=== PATIENT | male | born 1935 | race Native Hawaiian/Other Pacific Islander ===

== ENCOUNTER 2024-02-14 04:10 | Inpatient (IN) | payer OTHER ==
[2024-02-14] MEDS ORDERED: PANTOPRAZOLE SODIUM 40 MG VIAL ONE ×2 (04:48→04:53)
[2024-02-14] MEDS ORDERED: ONDANSETRON 4 MG/2 ML VIAL ONE (04:48)
[2024-02-14] MEDS: ONDANSETRON 4 MG/2 ML VIAL IVPUSH ONE (04:51)
[2024-02-14] MEDS: PANTOPRAZOLE SODIUM 40 MG VIAL IVPUSH ONE ×2 (04:51→04:56)
[2024-02-14 05:25] LABS: BASO % 0.7 % (0-2.0); EOS % 0.1 % (0-4.5); HEMATOCRIT 30.2 % (35.4-49); LYMPH % 8.9 % (8-40); MCH 31.9 pg (25.7-33.7); MCHC 33.3 g/dl (32.0-35.9); MEAN CELL VOLUME 95.7 fl (80-96); MEAN PLT VOLUME 8.4 fl (7.5-11.1); MONO % 1.8 % (3.8-10.2); NEUT % 88.5 % (42.8-82.8); PLATELET COUNT 221 10^3/uL (134-434); RBC 3.15 M/mm3 (4.00-5.60); RDW 14.1 % (11.9-15.9); WHITE BLOOD COUNT 7.9 K/mm3 (4.0-10.0)
[2024-02-14 05:32] LABS: VENOUS BASE EXCESS 0.9 mmol/L (-2-2); VENOUS O2 SATURATION 67.9 % (70-80); VENOUS PCO2 41.6 mmHg (38-52); VENOUS PH 7.408 (7.310-7.410)
[2024-02-14 05:47] LABS: CALCIUM 9.7 mg/dL (8.5-10.1)
[2024-02-14 05:48] LABS: ALBUMIN 3.3 g/dl (3.4-5.0); BLOOD UREA NITROGEN 29.9 mg/dL (7-18)
[2024-02-14 05:51] LABS: CREATININE 1.4 mg/dL (0.55-1.3)
[2024-02-14 05:53] LABS: BILIRUBIN,TOTAL 0.5 mg/dL (0.2-1); TOT PROT 7.4 g/dl (6.4-8.2)
[2024-02-14 06:00] LABS: INR 1.24 (0.83-1.09); PROTHROMBIN TIME (PATIENT) 14.2 SEC (9.7-13.0)
[2024-02-14 06:03] LABS: ACTIVATED PTT 32.5 SECONDS (25.2-36.5)
[2024-02-14] MEDS: LACTATED RINGERS SOLUTION 1000 ML INFUS.BAG IV ONE (06:41)
[2024-02-14] MEDS ORDERED: ONDANSETRON 4 MG/2 ML VIAL IVPUSH PRN (11:11)
[2024-02-14] MEDS ORDERED: ASPIRIN 81 MG CHEWABLE TABLETS ONE (12:43)
[2024-02-14] MEDS ORDERED: FAMOTIDINE 20 MG TABLET ONE (12:43)
[2024-02-14] MEDS ORDERED: APIXABAN 2.5 MG TABLET ONE ×2 (12:43→22:08)
[2024-02-14] MEDS: APIXABAN 2.5 MG TABLET PO SCH (12:46)
[2024-02-14] MEDS: FAMOTIDINE 20 MG TABLET PO SCH (12:46)
[2024-02-14] MEDS: ASPIRIN 81 MG CHEWABLE TABLETS PO SCH (12:46)
[2024-02-14] MEDS: MEMANTINE HCL 10 MG TABLET (FP) PO SCH (12:46)
[2024-02-14] MEDS ORDERED: PATIENT'S OWN MEDICATION (NON-FORMULARY) (Carbidopa/Levodopa [Carbidopa-Levodopa 10-100 Ta PO SCH (14:00)
[2024-02-14] MEDS: INSULIN ASPART SLIDING SCALE (NOVOLOG) 1 VIAL SQ SCH (17:05)
[2024-02-14] MEDS ORDERED: QUEtiapine FUMARATE 25 MG TABLET ONE (22:08)
[2024-02-14] MEDS ORDERED: ATORVASTATIN CA 20 MG TABLET (FP) ONE (22:08)
[2024-02-14] MEDS ORDERED: TAMSULOSIN HCL 0.4 MG CAP ONE (22:10)
[2024-02-14] MEDS: TAMSULOSIN HCL 0.4 MG CAP PO SCH (22:14)
[2024-02-14] MEDS: ATORVASTATIN CA 20 MG TABLET (FP) PO SCH (22:14)
[2024-02-14] MEDS: QUEtiapine FUMARATE 25 MG TABLET PO SCH (22:14)
[2024-02-15 07:20] LABS: EOS % 1.9 % (0-4.5); HEMATOCRIT 32.4 % (35.4-49); HEMOGLOBIN 10.9 GM/dL (11.7-16.9); MCH 32.3 pg (25.7-33.7); MCHC 33.5 g/dl (32.0-35.9); MEAN CELL VOLUME 96.4 fl (80-96); MEAN PLT VOLUME 8.8 fl (7.5-11.1); MONO % 6.5 % (3.8-10.2); NEUT % 73.6 % (42.8-82.8); PLATELET COUNT 227 10^3/uL (134-434); RBC 3.36 M/mm3 (4.00-5.60); RDW 14.3 % (11.9-15.9); WHITE BLOOD COUNT 9.4 K/mm3 (4.0-10.0)
[2024-02-15 07:38] LABS: POTASSIUM 4.1 mmol/L (3.5-5.1)
[2024-02-15 07:42] LABS: BLOOD UREA NITROGEN 23.6 mg/dL (7-18); CALCIUM 9.7 mg/dL (8.5-10.1)
[2024-02-15 07:45] LABS: CREATININE 1.7 mg/dL (0.55-1.3)
[2024-02-15 07:46] LABS: PHOSPHOROUS 4.1 mg/dL (2.5-4.9)
[2024-02-15] MEDS: SODIUM CHLORIDE 1,000 ML IV STA (08:35)
[2024-02-15] MEDS ORDERED: hydrOXYzine PAMOATE 25 MG CAPSULE (FP) PO ONE (08:47)
[2024-02-15] MEDS: hydrOXYzine PAMOATE 25 MG CAPSULE (FP) PO ONE (09:04)
[2024-02-15] MEDS: CARBIDOPA/LEVODOPA 10/100 TABLET (FP) PO SCH (09:04)
[2024-02-15] MEDS ORDERED: PANTOPRAZOLE SODIUM 40 MG VIAL ONE (10:13)
[2024-02-15] MEDS: PANTOPRAZOLE SODIUM 40 MG VIAL IVPUSH SCH (10:16)
[2024-02-15] MEDS: LISINOPRIL 20 MG TABLET PO SCH (10:28)
[2024-02-15] MEDS: amLODIPine BESYLATE 10 MG TABLET (FP) PO SCH (10:28)
[2024-02-15 11:15] LABS: POTASSIUM 4.4 mmol/L (3.5-5.1)
[2024-02-15 11:16] LABS: CALCIUM 9.6 mg/dL (8.5-10.1)
[2024-02-15 11:17] LABS: BLOOD UREA NITROGEN 26.8 mg/dL (7-18)
[2024-02-15 11:20] LABS: CREATININE 1.8 mg/dL (0.55-1.3)
[2024-02-15 14:23] LABS: EPI CELLS 11 /uL (0-25.1); HYALINE CASTS 0 /uL (0-3.1); URINE APPEARANCE CLEAR; URINE BACTERIA 512 /uL (0-1359); URINE BILIRUBIN NEGATIVE (NEGATIVE); URINE COLOR YELLOW; URINE GLUCOSE (UA) NEGATIVE (NEGATIVE); URINE KETONE NEGATIVE (NEGATIVE); URINE LEUK ESTERASE 3+ (NEGATIVE); URINE NITRITE NEGATIVE (NEGATIVE); URINE PROTEIN NEGATIVE (NEGATIVE); URINE RBC 14 /uL (0-23.9); URINE UROBILINOGEN 0.2 mg/dL (0.2-1.0); URINE WBC 63 /uL (0-25.8)
[2024-02-15 16:50] LABS: POTASSIUM 4.2 mmol/L (3.5-5.1)
[2024-02-15 16:51] LABS: CALCIUM 9.2 mg/dL (8.5-10.1)
[2024-02-15 16:52] LABS: BLOOD UREA NITROGEN 26.5 mg/dL (7-18)
[2024-02-15 16:55] LABS: CREATININE 1.7 mg/dL (0.55-1.3)
[2024-02-15] MEDS: CEFTRIAXONE 1 GM in DEXTROSE 5%-WATER - 50 ML IVPB SCH (17:43)
[2024-02-16 05:39] VITALS: RESP 18
[2024-02-16 07:24] LABS: BASO % 1.2 % (0-2.0); EOS % 3.6 % (0-4.5); HEMATOCRIT 29.2 % (35.4-49); HEMOGLOBIN 9.9 GM/dL (11.7-16.9); MCH 32.5 pg (25.7-33.7); MCHC 33.8 g/dl (32.0-35.9); MEAN CELL VOLUME 96.1 fl (80-96); MEAN PLT VOLUME 8.1 fl (7.5-11.1); MONO % 8.6 % (3.8-10.2); NEUT % 68.6 % (42.8-82.8); PLATELET COUNT 210 10^3/uL (134-434); RBC 3.04 M/mm3 (4.00-5.60); RDW 14.3 % (11.9-15.9); WHITE BLOOD COUNT 5.8 K/mm3 (4.0-10.0)
[2024-02-16 07:50] LABS: POTASSIUM 3.8 mmol/L (3.5-5.1)
[2024-02-16 07:58] LABS: ALBUMIN 3.1 g/dl (3.4-5.0); BLOOD UREA NITROGEN 25.8 mg/dL (7-18); MAGNESIUM 2.1 mg/dL (1.8-2.4)
[2024-02-16 08:01] LABS: CREATININE 1.6 mg/dL (0.55-1.3); PHOSPHOROUS 3.6 mg/dL (2.5-4.9)
[2024-02-16 08:03] LABS: BILIRUBIN,TOTAL 0.5 mg/dL (0.2-1); TOT PROT 6.7 g/dl (6.4-8.2)
[2024-02-16] MEDS ORDERED: FUROSEMIDE 40 MG/4 ML INJECTABLE VIAL IVPUSH SCH (13:30)
[2024-02-16] MEDS: FUROSEMIDE 40 MG/4 ML INJECTABLE VIAL IVPUSH ONE (14:28)
[2024-02-16] MEDS ORDERED: INSULIN ASPART SLIDING SCALE (NOVOLOG) 1 VIAL SQ ONE (16:45)
[2024-02-17 07:35] LABS: BASO % 1.2 % (0-2.0); EOS % 5.2 % (0-4.5); HEMATOCRIT 30.7 % (35.4-49); HEMOGLOBIN 10.6 GM/dL (11.7-16.9); LYMPH % 19.9 % (8-40); MCH 32.8 pg (25.7-33.7); MCHC 34.5 g/dl (32.0-35.9); MEAN CELL VOLUME 94.9 fl (80-96); MEAN PLT VOLUME 8.4 fl (7.5-11.1); MONO % 9.8 % (3.8-10.2); NEUT % 63.9 % (42.8-82.8); PLATELET COUNT 201 10^3/uL (134-434); RBC 3.24 M/mm3 (4.00-5.60); RDW 14.2 % (11.9-15.9); WHITE BLOOD COUNT 5.1 K/mm3 (4.0-10.0)
[2024-02-17 07:49] LABS: POTASSIUM 3.8 mmol/L (3.5-5.1)
[2024-02-17 07:58] LABS: ALBUMIN 3.2 g/dl (3.4-5.0); CALCIUM 9.1 mg/dL (8.5-10.1)
[2024-02-17 08:01] LABS: CREATININE 1.7 mg/dL (0.55-1.3)
[2024-02-17 08:02] LABS: TOT PROT 7.1 g/dl (6.4-8.2)
[2024-02-17 08:03] LABS: BILIRUBIN,TOTAL 0.4 mg/dL (0.2-1)
[2024-02-17] MEDS: PANTOPRAZOLE 40 MG TABLET PO SCH (11:21)
[2024-02-17 19:01] VITALS: PULSE 66
[2024-02-17 23:05] VITALS: BP 124/63; TEMP 97.3
[2024-02-17 23:31] VITALS: BMI 17.9
== END 2024-02-18 01:30 | DRG 689 ==
LOC: JER 04:10 → JERBED 09:31 → J4W 02-15 14:34
PROVIDERS: ADMIT Internal Medicine; ATTEND Internal Medicine
DX: N39.0 Urinary tract infection, site not specified (principal); I50.33 Acute on chronic diastolic (congestive) heart failure; K92.0 Hematemesis; I24.89 Other forms of acute ischemic heart disease; N17.9 Acute kidney failure, unspecified; G20.A1 Parkinson's disease without dyskinesia, without mention of fluctuations; F03.90 Unspecified dementia, unspecified severity, without behavioral disturbance, psychotic disturbance, mood disturbance, and anxiety; D64.9 Anemia, unspecified; E78.5 Hyperlipidemia, unspecified; I48.91 Unspecified atrial fibrillation; N40.0 Benign prostatic hyperplasia without lower urinary tract symptoms; E11.9 Type 2 diabetes mellitus without complications; B96.20 Unspecified Escherichia coli [E. coli] as the cause of diseases classified elsewhere; I11.0 Hypertensive heart disease with heart failure
CPT/HCPCS: 36415; 70450-TC; 71045-TC-FY; 74177-TC; 80048; 80053; 80061; 81003; 82272; 82728; 82803; 82962; 83036; 83540; 83550; 83605; 83690; 83735; 83880; 84100; 84466; 84484; 85025; 85610; 85730; 86850; 86900; 86901; 87086; 87186; 87635; 93005; 93010; 93306-TC; 99285-25; Q9967